=== PATIENT | female | born 1955 | race Caucasian/White ===

== ENCOUNTER 2017-04-30 10:30 | Day surgery (SDC) | payer MEDICARE, MEDICAID ==
[~2017-04-30 10:30] MED LIST: Famotidine 20 MG/2 ML SDV IV ONE; Lidocaine 2% 20 ML MDV INJECT ONE; Metoclopramide 10 MG/2 ML SDV IV ONE; Midazolam 1 MG/ML 2 ML SDV IV ONE; Ondansetron 4 MG/2 ML SDV IV ONE; Propofol 200 MG/20 ML SDV IV ONE
[2017-04-30] MEDS ORDERED: Lactated Ringers 1,000 ML IV SCH (11:15)
[2017-04-30] MEDS ORDERED: Ferric Subsulfate Topical Soln 8 GM (8 ML) Bottle ONE (11:50)
[2017-04-30] MEDS ORDERED: Silver Nitrate Applicator Each ONE (11:51)
[2017-04-30] MEDS ORDERED: Midazolam 1 MG/ML 2 ML SDV ONE (12:25)
[2017-04-30] MEDS ORDERED: fentaNYL 100 MCG/2 ML SDV ONE (12:26)
[2017-04-30] MEDS ORDERED: Metoclopramide 10 MG/2 ML SDV ONE (12:27)
[2017-04-30] MEDS ORDERED: Ketorolac 30 MG/ML SDV ONE (12:27)
[2017-04-30] MEDS ORDERED: Ondansetron 4 MG/2 ML SDV ONE (12:27)
[2017-04-30] MEDS ORDERED: Propofol 200 MG/20 ML SDV ONE (12:27)
[2017-04-30] MEDS ORDERED: Famotidine 20 MG/2 ML SDV ONE (12:27)
[2017-04-30] MEDS ORDERED: Lidocaine 2% 20 ML MDV ONE (12:28)
--- NOTE | 2017-04-30 21:03 | OR ---
DATE: 04/30/2017 PREOPERATIVE DIAGNOSES: Cervical stenosis and unsuccessful previous endometrial biopsy attempt in the office. POSTOPERATIVE DIAGNOSES: Cervical stenosis and unsuccessful previous endometrial biopsy attempt in the office with severe cervical stenosis and very difficult to get access to high stenotic cervix. OPERATION PERFORMED: Attempted D and C, and attempted endometrial biopsy. ANESTHESIA: General anesthesia. ESTIMATED BLOOD LOSS: Negligible. DESCRIPTION OF PROCEDURE: For several days, preoperatively, we have been attempting to soften and hopefully dilate somewhat her severely stenotic cervix. She does have a recent history of some dark vaginal discharge, which is thought to be old dark blood. The patient also has an abnormally thickened endometrium at 11 mm. The patient was taken to the operating room today for attempted D and C, and attempted endometrial biopsy. After the induction of satisfactory general anesthesia and with the patient routinely prepped and draped in the usual fashion, the patient was placed in the dorsal lithotomy position. Now, using the weighted speculum, a very large rectocele and enterocele as visualized before is visible. Now, using the vaginal retractor, we have attempted to gain access to the cervix, which is very high in the vaginal vault. Exposure was very difficult and at this time, we did utilize the longer Morena vaginal retractors because the cervix is extremely high in the vaginal vault. I did re-prep again this area with the Betadine prepping swabs. A single-tooth tenaculum is attached to the anterior lip of the cervix finally after great difficulty and with difficulty getting access to this small stenotic and very high in the vaginal vault tissue. I attempted the Os Finder and this was not helpful, but still resistance in the endocervical canal. The weighted speculum was falling out at times, and a different weighted speculum is inserted and having more Trendelenburg and adjusting the lights repeatedly and also having an extra insurance account assistant present to help with the retractors. The cervix was finally reached, I attempted to sound the endocervical canal, but this was extremely difficult and extremely stenotic. Since the classical and typical dilatation and curettage was not able to be accomplished, I did resort to attempt at endometrial biopsy using a smallest Lezama curette that I have, I have brought this from the clinic with me. Once again, only a very small scant amount of tissue was obtained and I am not sure if this was the satisfactory endometrium or not. Great caution was utilized because of the fact that I do not want to use undo or excessive force on her tissues and we want to avoid any perforation etc. The patient has already had Cytotec for the past 3 to 4 days to hopefully soften and dilate the cervix. It is extremely difficult to proceed on and get appropriate abundant endometrial sampling. All of the instruments were removed at this time. The bimanual exam was again done and reveals the uterus to be in the mid position and thought to be normal sized. Estimated blood loss is negligible. The sponge and instrument count was reported as correct. The patient has tolerated the procedure in a satisfactory fashion, and the scant amount of tissue that might be insufficient was submitted to the pathologist. Because of the highly unusual nature of this case today, I am going to order serum CA-125 testing since this can be a further indicator, although not a perfect indicator of either endometrial carcinoma or ovarian carcinoma. The routine followup instructions are given to the patient at the time of discharge. We will keep in contact with her on the telephone regarding her pathology report, and then further followup measures will be discussed with her. She will contact us if any fever, unusual bleeding, unusual pain, or any other bothersome symptoms whatsoever. She will keep us closely informed on the phone. [facility] /[id number]
[2017-05-01 06:56] VITALS: BP 159/78
== END 2017-04-30 15:55 | disposition home or self-care (01) ==
LOC: DL.SDS 10:30
PROVIDERS: ATTEND Obstetrics & Gynecology
DX: N88.2 Stricture and stenosis of cervix uteri (principal); N85.9 Noninflammatory disorder of uterus, unspecified; I10 Essential (primary) hypertension; E78.5 Hyperlipidemia, unspecified; E11.9 Type 2 diabetes mellitus without complications; Z87.891 Personal history of nicotine dependence; Z79.899 Other long term (current) drug therapy; Z88.6 Allergy status to analgesic agent
CPT/HCPCS: 00940; 36415; 58120; 86304; J2250; J2405; J2704; J2765; J7120; 88305; S0028

== ENCOUNTER 2017-06-16 11:20 | Emergency (ER) | payer MEDICARE, MEDICAID ==
[2017-06-16] MEDS ORDERED: Meclizine 12.5 MG Tab PO ONE ×2 (11:48→12:32)
--- NOTE | 2017-06-16 11:48 | EDM.PDOC ---
ED HPI GENERAL MEDICAL PROBLEM - General Chief Complaint: Headache Stated Complaint: DIZZY/HEADACHE/ARM TINGLES Time Seen by Provider: 06/16/17 11:43 Source of Information: Reports: Patient History Limitations: Reports: No Limitations - History of Present Illness INITIAL COMMENTS - FREE TEXT/NARRATIVE: 62 yo female presents with c/o dizziness. States dizziness has been present for the past 2-3 weeks since starting her atorvastatin. States that she has occasional headaches but not currently having a headache. States that she has nausea as well> denies pain elsewhere. No decrease in appetite. States that she feels like she is spinning. No other complaints Onset Date: 05/26/17 Duration: Constant, Intermittent Location: Reports: Head Quality: Reports: Ache, Pressure Severity: Moderate Improves with: Reports: Rest Worsens with: Reports: Movement Associated Symptoms: Reports: No Other Symptoms - Related Data Allergies Allergy/AdvReac Type Severity Reaction Status Date / Time aspirin Allergy Cannot Uncoded 06/16/17 11:25 Remember Home Meds: Home Meds Acetaminophen 325 mg PO ASDIRECTED PRN 04/22/17 [History] amLODIPine [Norvasc] 5 mg PO DAILY 04/22/17 [History] Cinnamon Bark [Cinnamon] 2 cap PO DAILY 04/29/17 [History] Metoprolol Succinate [Toprol XL] 1 tab PO DAILY 04/30/17 [History] atorvaSTATin [Lipitor] 10 mg PO DAILY 06/16/17 [History] Past Medical History HEENT History: Reports: Impaired Vision, Other (See Below) Other HEENT History: WEARS CORRECTIVE LENS Cardiovascular History: Reports: Blood Clots/VTE/DVT, High Cholesterol, Hypertension, SOB on Exertion, Other (See Below) Other Cardiovascular History: ATHEROSCLEROSIS Respiratory History: Reports: SOB Gastrointestinal History: Reports: Cholelithiasis, Other (See Below) Other Gastrointestinal History: SPENOMEGALY Genitourinary History: Reports: Urinary Incontinence 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: Dysfunctional Uterine Bleeding, , Prolapsed Uterus, Other (See Below) Other OB/BYN History: ENLARGED UTERUS Musculoskeletal History: Reports: Back Pain, Chronic Neurological History: Reports: Brain Injury Psychiatric History: Reports: Depression Endocrine/Metabolic History: Reports: Obesity/BMI 30+ Hematologic History: Reports: None Immunologic History: Reports: None Oncologic (Cancer) History: Reports: Other (See Below) Other Oncologic History: LIP CA Dermatologic History: Reports: None - Infectious Disease History Infectious Disease History: Reports: Chicken Pox, Measles, Mumps - Past Surgical History HEENT Surgical History: Reports: Other (See Below) Other HEENT Surgeries/Procedures: EXCISION OF LIP DUE TO CA Cardiovascular Surgical History: Reports: None Respiratory Surgical History: Reports: None GI Surgical History: Reports: Colonoscopy, EGD Female Surgical History: Reports: Tubal Ligation Endocrine Surgical History: Reports: None Neurological Surgical History: Reports: None Musculoskeletal Surgical History: Reports: None Oncologic Surgical History: Reports: None Dermatological Surgical History: Reports: None Social & Family History - Family History Family Medical History: Noncontributory - Tobacco Use Smoking Status *Q: Former Smoker Used Tobacco, but Quit: Yes Month Tobacco Last Used: ? Second Hand Smoke Exposure: No - Caffeine Use Caffeine Use: Reports: Soda, Tea Other Caffeine Use: SODA POP 1 1 LITER BOTTLE DAILY - Recreational Drug Use Recreational Drug Use: No Drug Use in Last 12 Months: No ED ROS GENERAL - Review of Systems Review Of Systems: See Below GI/Abdominal: Reports: Nausea ED EXAM, DIZZINESS - Physical Exam Exam: See Below Exam Limited By: No Limitations General Appearance: Alert, WD/WN, No Apparent Distress Eye Exam: Bilateral Eye: Normal Inspection, PERRL Ears: Normal External Exam, Normal Canal, Hearing Grossly Normal, Normal TMs Nose: Normal Inspection, No Blood, Clear Rhinorrhea Throat/Mouth: Normal Inspection, Normal Lips, Normal Teeth, Normal Gums, Normal Oropharynx, Normal Voice, No Airway Compromise Head Exam: Atraumatic, Normocephalic Vertigo: reproducible (with laying flat and movement), constant Neck: Normal Inspection, Supple, Non-Tender, Full Range of Motion Respiratory/Chest: No Respiratory Distress, Lungs Clear, Normal Breath Sounds, No Accessory Muscle Use, Chest Non-Tender Cardiovascular: Normal Peripheral Pulses, Regular Rate, Rhythm, No Edema, No Gallop, No JVD, No Murmur, No Rub Neurological: Alert, Normal Mood/Affect, Normal Dorsiflexion, CN II-XII Intact, Normal Plantar Flexion, Normal Gait, No Motor/Sensory Deficits, Oriented x 3 Back Exam: Normal Inspection, Full Range of Motion, NT Course - Vital Signs Last Recorded V/S: Last Vital Signs Temp 98 F 06/16/17 11:28 Pulse 82 06/16/17 13:26 Resp 18 06/16/17 13:26 BP 158/75 H 06/16/17 13:26 Pulse Ox 99 06/16/17 13:26 - Orders/Labs/Meds Orders: Active Orders 24 hr Category Date Time Status EKG Documentation Completion [RC] STAT Care 06/16/17 11:48 Active Labs: Laboratory Tests 06/16/17 06/16/17 Range/Units 12:07 12:07 WBC 7.9 (5.0-10.0) 10^3/uL RBC 5.44 H (4.2-5.4) 10^6/uL Hgb 16.5 H (12.0-16.0) g/dL Hct 49.0 H (37.0-47.0) % MCV 90.1 (80-100) fL MCH 30.3 (27.0-34.0) pg MCHC 33.7 (33.0-35.0) g/dL Plt Count 236 (150-450) 10^3/uL Neut % (Auto) 68.5 (42.2-75.2) % Lymph % (Auto) 21.4 (20.5-50.1) % [place] % (Auto) 8.9 H (2-8) % Eos % (Auto) 0.9 L (1.0-3.0) % Baso % (Auto) 0.3 (0.0-1.0) % Sodium 141 (135-145) mmol/L Potassium 4.1 (3.6-5.0) mmol/L Chloride 100 L (101-111) mmol/L Carbon Dioxide 28.0 (21.0-31.0) mmol/L Anion Gap 17.1 BUN 10 (7-18) mg/dL Creatinine 0.8 (0.6-1.3) mg/dL Est Cr Clr Drug Dosing 61.35 mL/min Estimated GFR (MDRD) > 60 Glucose 136 H (74-105) mg/dL Calcium 10.0 (8.4-10.2) mg/dl Meds: Medications Discontinued Medications Generic Name Dose Route Start Last Admin Trade Name Freq PRN Reason Stop Dose Admin Meclizine HCl 25 mg 06/16/17 11:48 06/16/17 12:02 Antivert PO 06/16/17 11:49 25 mg ONETIME ONE Administration Meclizine HCl 25 mg 06/16/17 12:32 06/16/17 12:42 Antivert PO 06/16/17 12:33 25 mg ONETIME ONE Administration Ondansetron HCl 4 mg 06/16/17 11:51 06/16/17 12:02 Zofran Odt PO 06/16/17 11:52 4 mg ONETIME ONE Administration - Radiology Interpretation Free Text/Narrative:: Spoke with Xin Thacker who states that pt has some underlying decreased density in R frontal, temporal and occipital lobes concerning for lesions. recommends non emergent MRI. - Re-Assessments/Exams Free Text/Narrative Re-Assessment/Exam: 06/16/17 12:32 Some relief with meclizine, will re-dose and re-evaluate 06/16/17 13:35 Pt states that she feels much better. Will dc home with meclizine and instruction for follow up of brain densities Departure - Departure Time of Disposition: 13:36 Disposition: Home, Self-Care 01 Condition: Good Clinical Impression: Vertigo - Discharge Information Instructions: Vertigo, Dizziness Referrals: Yarely Haas [Primary Care Provider] - Forms: ED Department Discharge Additional Instructions: You need to follow up with your primary doctor to be evaluated for possible lesions in the right side of your brain. You may need an MRI to evaluate this. You will need to have your doctor request the copy of the CT scan of your head. Take the medication every eight hours as needed for the dizziness. return for any worsening symptoms. - My Orders Last 24 Hours: My Active Orders 06/16/17 11:48 EKG Documentation Completion [RC] STAT - Assessment/Plan Last 24 Hours: My Active Orders 06/16/17 11:48 EKG Documentation Completion [RC] STAT
[2017-06-16] MEDS ORDERED: Ondansetron 4 MG Tab.DIS PO ONE (11:51)
[2017-06-16 12:35] LABS: CHLORIDE,CL 100 mmol/L (101-111); SODIUM,NA 141 mmol/L (135-145)
[2017-06-16 13:26] VITALS: BP 158/75
--- NOTE | 2017-06-17 15:13 | EKG ---
06/16/2017- NICOLAS WHITMAN - EKG per my reading shows sinus rhythm at the rate of 70. No acute ST changes. [facility] /[id number]
== END 2017-06-16 13:44 | disposition home or self-care (01) ==
LOC: DL.ED 11:20
DX: R42 Dizziness and giddiness (principal); H54.7 Unspecified visual loss; E78.00 Pure hypercholesterolemia, unspecified; I10 Essential (primary) hypertension; E66.9 Obesity, unspecified; Z85.819 Personal history of malignant neoplasm of unspecified site of lip, oral cavity, and pharynx; Z98.51 Tubal ligation status; Z87.891 Personal history of nicotine dependence; Z88.6 Allergy status to analgesic agent; Z79.899 Other long term (current) drug therapy
CPT/HCPCS: 36415; 70450; 80048; 85025; 93005; 93010; 99284; A9270

== ENCOUNTER 2021-03-14 11:13 | Emergency (ER) | payer MEDICARE, MEDICAID ==
--- NOTE | 2021-03-14 11:28 | EDM.PDOC ---
ED HPI GENERAL MEDICAL PROBLEM - General Stated Complaint: FELL DOWNTOWN BUMP ON HEAD NO PHONE Time Seen by Provider: 03/14/21 11:15 Source of Information: Reports: Patient History Limitations: Reports: No Limitations - History of Present Illness INITIAL COMMENTS - FREE TEXT/NARRATIVE: This 66 yo female patient reports to the ED due to tripping on the curb while walking downtown and hitting her head. The patient reports she was "just walking around" downtown when she tripped over the curb and fell. The patient denies any loss of consciousness before, during or after the fall. The patient denies any dizziness before the fall. The patient reports she is on blood thinner and has noticed a large bump to the back of her head. Onset: Today Duration: Minutes: Location: Reports: Head (Posterior scalp hematoma) Quality: Reports: Ache, Dull Severity: Mild Improves with: Reports: None Worsens with: Reports: None Context: Reports: Activity Associated Symptoms: Reports: No Other Symptoms - Related Data Allergies Allergy/AdvReac Type Severity Reaction Status Date / Time aspirin Allergy Stomach Uncoded 06/03/19 19:28 Upset Home Meds: Home Meds Acetaminophen 325 mg PO ASDIRECTED PRN 04/22/17 [History] amLODIPine [Norvasc] 5 mg PO DAILY 04/22/17 [History] Cinnamon Bark [Cinnamon] 2 cap PO DAILY 04/29/17 [History] Metoprolol Succinate [Toprol XL] 1 tab PO DAILY 04/30/17 [History] atorvaSTATin [Lipitor] 10 mg PO DAILY 06/16/17 [History] Clopidogrel Bisulfate [Clopidogrel] 75 mg PO DAILY 06/03/19 [History] metFORMIN [Glucophage] 1,000 mg PO BID 06/03/19 [History] Past Medical History HEENT History: Reports: Impaired Vision, Other (See Below) Other HEENT History: WEARS CORRECTIVE LENS Cardiovascular History: Reports: Blood Clots/VTE/DVT, CAD, High Cholesterol, Hypertension, SOB on Exertion Other Cardiovascular History: ATHEROSCLEROSIS Respiratory History: Reports: SOB Gastrointestinal History: Reports: Cholelithiasis, Other (See Below) Other Gastrointestinal History: SPENOMEGALY Genitourinary History: Reports: Urinary Incontinence 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: Dysfunctional Uterine Bleeding, , Prolapsed Uterus, Other (See Below) Other MEAT AND POULTRY INSPECTOR History: ENLARGED UTERUS Musculoskeletal History: Reports: Back Pain, Chronic Neurological History: Reports: Brain Injury Psychiatric History: Reports: Depression Endocrine/Metabolic History: Reports: Obesity/BMI 30+ Hematologic History: Reports: None Immunologic History: Reports: None Oncologic (Cancer) History: Reports: Other (See Below) Other Oncologic History: LIP CA Dermatologic History: Reports: None - Infectious Disease History Infectious Disease History: Reports: Chicken Pox, Measles, Mumps - Past Surgical History HEENT Surgical History: Reports: Other (See Below) Other HEENT Surgeries/Procedures: EXCISION OF LIP DUE TO CA Cardiovascular Surgical History: Reports: None Respiratory Surgical History: Reports: None GI Surgical History: Reports: Colonoscopy, EGD Female Surgical History: Reports: Tubal Ligation Endocrine Surgical History: Reports: None Neurological Surgical History: Reports: None Musculoskeletal Surgical History: Reports: None Oncologic Surgical History: Reports: None Dermatological Surgical History: Reports: None Social & Family History - Family History Family Medical History: No Pertinent Family History - Caffeine Use Caffeine Use: Reports: Coffee, Soda Other Caffeine Use: SODA POP 1 1 LITER BOTTLE DAILY ED ROS GENERAL - Review of Systems Review Of Systems: Comprehensive ROS is negative, except as noted in HPI. ED EXAM, HEAD INJURY - Physical Exam Exam: See Below Exam Limited By: No Limitations General Appearance: Alert, WD/WN, Mild Distress Head: Scalp Hematoma (Posterior scalp) Nexus Criteria: No: Posterior, Midline Cervical Tenderness, Evidence of Intoxication, Altered Level of Consciousness, Focal Neurological Deficit, Painful Distraction Injuries Eyes: Bilateral Eye: EOMI, Normal Inspection, PERRL Ears: Normal External Exam, Normal Canal, Hearing Grossly Normal, Normal TMs Nose: Normal Inspection, Normal Mucousa, No Blood Throat/Mouth: Normal Inspection, Normal Lips, Normal Teeth, Normal Gums, Normal Oropharynx, Normal Voice, No Airway Compromise Neck: Non-Tender, Full Range of Motion, Normal Alignment, Normal Inspection Respiratory: No Respiratory Distress, Lungs Clear, Normal Breath Sounds, No Accessory Muscle Use, Chest Non-Tender Cardiovascular: Normal Peripheral Pulses, Regular Rate, Rhythm, No Edema, No Gallop, No JVD, No Murmur, No Rub GI/Abdominal Exam: Normal Bowel Sounds, Soft, Non-Tender, No Organomegaly, No Distention, No Abnormal Bruit, No Mass (Female) Exam: Deferred Rectal (Female) Exam: Deferred Back Exam: Full Range of Motion, Normal Inspection, NT Extremities: Normal Inspection, Normal Range of Motion, Non-Tender, No Pedal Edema, Normal Capillary Refill Neurologic: color stripper II-XII nml As Tested, No Motor/Sensory Deficits, Alert, Normal Mood/Affect, Oriented x 3 Skin: Other (The patient has a large hematoma to her posterior head due to the fall. There is currently no bleeding or abrasion to the area.) - [place] Coma Score Best Eye Response ([place]): (4) Open Spontaneously Best Verbal Response ([place]): (5) Oriented Best Motor Response ([place]): (6) Obeys Commands [place] Total: 16 Course - Vital Signs Last Recorded V/S: Last Vital Signs Temp 97.6 F 03/14/21 11:19 Pulse 99 03/14/21 11:19 Resp 18 03/14/21 11:19 BP 152/128 H 03/14/21 11:19 Pulse Ox 99 03/14/21 11:19 Departure - Departure Time of Disposition: 12:21 Disposition: Home, Self-Care 01 Condition: Fair Clinical Impression: Scalp hematoma Qualifiers: Encounter type: initial encounter Qualified Code(s): S00.03XA - Contusion of scalp, initial encounter - Discharge Information *PRESCRIPTION DRUG MONITORING PROGRAM REVIEWED*: Not Applicable *COPY OF PRESCRIPTION DRUG MONITORING REPORT IN PATIENT LIZBETH: Not Applicable Instructions: Facial or Scalp Contusion, [id number] Forms: ED Department Discharge Care Plan Goals: The patient was advised of the examination and CT results during the visit. The patient was encouraged to apply ice to the area. If the patient has any additional symptoms or concerns, the patient should either return to the emergency department or visit her primary care facility. Sepsis Event Note (ED) - Focused Exam Vital Signs: Vital Signs Temp Pulse Resp BP Pulse Ox 03/14/21 11:19 97.6 F 99 18 152/128 H 99
[2021-03-14 11:43] VITALS: BP 152/128; PULSE 99
--- NOTE | 2021-03-14 11:49 | CT ---
PROCEDURE INFORMATION: Exam: CT Head Without Contrast Exam date and time: 03/14/2021 11:40 AM Age: 66 years old Clinical indication: Injury or trauma; Fall; Abrasion; Scalp; Injury date: 03/14/2021; Additional info: Ground level fall (contusion posterior scalp) TECHNIQUE: Imaging protocol: Computed tomography of the head without contrast. Radiation optimization: All CT scans at this facility use at least one of these dose optimization techniques: automated exposure control; mA and/or kV adjustment per patient size (includes targeted exams where dose is matched to clinical indication); or iterative reconstruction. COMPARISON: CT Head wo Cont 06/16/2017 11:50 AM FINDINGS: Brain: Pre-existing low-attenuation white matter foci in the right occipital lobe, both frontal lobes, and right temporal lobes, not significantly changed in the interval. No intracranial hemorrhage or acute brain injury. Cerebral ventricles: No intraventricular hemorrhage or hydrocephalus. Paranasal sinuses: The visualized paranasal sinuses are aerated. Mastoid air cells: The mastoid air cells are aerated. Bones/joints: No calvarial fracture. There is hyperostosis frontalis interna. Soft tissues: There is a midline and right paramidline posterior parietal/occipital scalp hematoma. IMPRESSION: No intracranial injury or calvarial fracture.
== END 2021-03-14 12:29 | disposition home or self-care (01) ==
LOC: DL.ED 11:13
DX: S00.03XA Contusion of scalp, initial encounter (principal); I25.10 Atherosclerotic heart disease of native coronary artery without angina pectoris; E78.00 Pure hypercholesterolemia, unspecified; I10 Essential (primary) hypertension; E66.9 Obesity, unspecified; Z79.02 Long term (current) use of antithrombotics/antiplatelets; Z79.899 Other long term (current) drug therapy; Z88.8 Allergy status to other drugs, medicaments and biological substances; Z68.30 Body mass index [BMI] 30.0-30.9, adult; W18.09XA Striking against other object with subsequent fall, initial encounter; W10.1XXA Fall (on)(from) sidewalk curb, initial encounter; Y92.480 Sidewalk as the place of occurrence of the external cause
CPT/HCPCS: 70450; 99283-25

== ENCOUNTER 2021-06-14 18:48 | Emergency (ER) | payer MEDICARE, MEDICAID ==
[2021-06-14] MEDS ORDERED: Sulfamethoxazole/Trimethoprim 800-160 MG Tab PO ONE (18:49)
[2021-06-14 19:11] VITALS: BP 149/78; PULSE 102
--- NOTE | 2021-06-14 19:26 | EDM.PDOC ---
ED HPI GENERAL MEDICAL PROBLEM - General Chief Complaint: Lower Extremity Injury/Pain Stated Complaint: FELL LEFT SIDE HURTS. Time Seen by Provider: 06/14/21 19:12 Source of Information: Reports: Patient, RN Notes Reviewed - History of Present Illness INITIAL COMMENTS - FREE TEXT/NARRATIVE: Pt is here for left lower extremity swelling and pain. It started about 2 days ago after she fell and landed on her left knee. She notes her knee does not hurt, but yesterday, her calf started to swell, become red and painful. She is a diabetic and is worried about possible infection. Pt does take plavix after a recent stroke. No numbness or tingling in her foot or toes. No swelling in her right lower extremity. No history of previous swelling in her legs. Duration: Day(s): (2) Location: Reports: Lower Extremity, Left - Related Data Allergies Allergy/AdvReac Type Severity Reaction Status Date / Time aspirin Allergy Stomach Uncoded 06/03/19 19:28 Upset Home Meds: Home Meds Acetaminophen 325 mg PO ASDIRECTED PRN 04/22/17 [History] amLODIPine [Norvasc] 5 mg PO DAILY 04/22/17 [History] Cinnamon Bark [Cinnamon] 2 cap PO DAILY 04/29/17 [History] atorvaSTATin [Lipitor] 10 mg PO DAILY 06/16/17 [History] Clopidogrel Bisulfate [Clopidogrel] 75 mg PO DAILY 06/03/19 [History] metFORMIN [Glucophage] 1,000 mg PO BID 06/03/19 [History] Past Medical History HEENT History: Reports: Impaired Vision, Other (See Below) Other HEENT History: WEARS CORRECTIVE LENS Cardiovascular History: Reports: Blood Clots/VTE/DVT, CAD, High Cholesterol, Hypertension, SOB on Exertion Other Cardiovascular History: ATHEROSCLEROSIS Respiratory History: Reports: SOB Gastrointestinal History: Reports: Cholelithiasis, Other (See Below) Other Gastrointestinal History: SPLENOMEGALY Genitourinary History: Reports: Urinary Incontinence CLINIC OFFICE MANAGER History: Reports: Dysfunctional Uterine Bleeding, , Prolapsed Uterus, Other (See Below) Other CLINIC OFFICE MANAGER History: ENLARGED UTERUS Musculoskeletal History: Reports: Back Pain, Chronic Neurological History: Reports: Brain Injury Psychiatric History: Reports: Depression Endocrine/Metabolic History: Reports: Diabetes, Type II, Obesity/BMI 30+ Hematologic History: Reports: None Immunologic History: Reports: None Oncologic (Cancer) History: Reports: Other (See Below) Other Oncologic History: LIP CANCER Dermatologic History: Reports: None - Infectious Disease History Infectious Disease History: Reports: Chicken Pox, Measles, Mumps - Past Surgical History HEENT Surgical History: Reports: Other (See Below) Other HEENT Surgeries/Procedures: EXCISION OF LIP DUE TO CA Cardiovascular Surgical History: Reports: None Respiratory Surgical History: Reports: None GI Surgical History: Reports: Colonoscopy, EGD Female Surgical History: Reports: Tubal Ligation Endocrine Surgical History: Reports: None Neurological Surgical History: Reports: None Musculoskeletal Surgical History: Reports: None Oncologic Surgical History: Reports: None Dermatological Surgical History: Reports: None Social & Family History - Family History Family Medical History: No Pertinent Family History - Tobacco Use Tobacco Use Status *Q: Never Tobacco User Second Hand Smoke Exposure: No - Caffeine Use Caffeine Use: Reports: Soda Other Caffeine Use: SODA POP 1 1 LITER BOTTLE DAILY Review of Systems - Review of Systems Review Of Systems: Comprehensive ROS is negative, except as noted in HPI. ED EXAM, GENERAL - Physical Exam Exam: See Below Exam Limited By: No Limitations General Appearance: Alert, WD/WN, No Apparent Distress Eye Exam: Bilateral Eye: Normal Inspection Ears: Normal External Exam Head: Atraumatic, Normocephalic Neck: Supple, Non-Tender Respiratory/Chest: No Respiratory Distress, Lungs Clear, Normal Breath Sounds, No Accessory Muscle Use Cardiovascular: Normal Peripheral Pulses, Regular Rate, Rhythm, No Murmur GI/Abdominal: Soft, Non-Tender (Female) Exam: Deferred Rectal (Female) Exam: Deferred Back Exam: Normal Inspection, Full Range of Motion, NT Extremities: Normal Inspection, Normal Capillary Refill, Pedal Edema (left lower extremity), Redness (left lower extremity) Neurological: Alert, Oriented, Normal Cognition, No Motor/Sensory Deficits Psychiatric: Normal Affect, Normal Mood Skin Exam: Warm, Dry, Intact, No Rash Course - Vital Signs Last Recorded V/S: Last Vital Signs Temp 99 F 06/14/21 19:08 Pulse 102 H 06/14/21 19:08 Resp 18 06/14/21 19:08 BP 149/78 H 06/14/21 19:08 Pulse Ox 97 06/14/21 19:08 - Orders/Labs/Meds Orders: Active Orders 24 hr Category Date Time Status Venous Doppler Lwr Ext Lt [US] Urgent Exams 06/14/21 19:20 Ordered - Re-Assessments/Exams Free Text/Narrative Re-Assessment/Exam: US of the left lower extremity negative for DVT. Will start the pt on antibiotics. She notes she does not have the money to fill a prescription at this time, but could fill them on thursday. 06/14/21 20:22 Departure - Departure Time of Disposition: 20:28 Disposition: Home, Self-Care 01 Condition: Good Clinical Impression: Cellulitis Qualifiers: Site of cellulitis: extremity Site of cellulitis of extremity: lower extremity Laterality: left Qualified Code(s): L03.116 - Cellulitis of left lower limb - Discharge Information *PRESCRIPTION DRUG MONITORING PROGRAM REVIEWED*: Not Applicable *COPY OF PRESCRIPTION DRUG MONITORING REPORT IN PATIENT LIZBETH: Not Applicable Instructions: Cellulitis, Adult, [id number] Forms: ED Department Discharge Additional Instructions: Bactrim twice daily for 10 days Over the counter medications as needed for pain relief Follow up with primary care provider in 5-7 days Sepsis Event Note (ED) - Focused Exam Vital Signs: Vital Signs Temp Pulse Resp BP Pulse Ox 06/14/21 19:08 99 F 102 H 18 149/78 H 97 - My Orders Last 24 Hours: My Active Orders 06/14/21 19:20 Venous Doppler Lwr Ext Lt [US] Urgent - Assessment/Plan Last 24 Hours: My Active Orders 06/14/21 19:20 Venous Doppler Lwr Ext Lt [US] Urgent
--- NOTE | 2021-06-14 20:28 | US ---
PROCEDURE INFORMATION: Exam: US Duplex Left Lower Extremity Veins, Limited Exam date and time: 06/14/2021 7:44 PM Age: 66 years old Clinical indication: Pain; Leg, lower; Left; Additional info: Left lower extremity swelling TECHNIQUE: Imaging protocol: Real-time Duplex ultrasound of the Left Lower Extremity with 2-D tobar scale, color Doppler flow and spectral waveform analysis with image documentation. Limited exam focused on the left lower extremity veins. COMPARISON: No relevant prior studies available. FINDINGS: Left deep veins: Unremarkable. The common femoral, femoral, proximal profunda femoral, and popliteal veins are patent without thrombus. Normal Doppler waveforms. Normal compressibility and/or augmentation response. Left superficial veins: Unremarkable. Saphenofemoral junction is patent without thrombus. Soft tissues: Subcutaneous edema. IMPRESSION: No evidence of left lower extremity deep vein thrombosis.
[2021-06-14] MEDS ORDERED: Sulfamethoxazole/Trimethoprim 800-160 MG Tab ONE (20:35)
== END 2021-06-14 20:46 | disposition home or self-care (01) ==
LOC: DL.ED 18:48
DX: L03.116 Cellulitis of left lower limb (principal); I25.10 Atherosclerotic heart disease of native coronary artery without angina pectoris; E78.00 Pure hypercholesterolemia, unspecified; I10 Essential (primary) hypertension; E11.9 Type 2 diabetes mellitus without complications; E66.9 Obesity, unspecified; Z68.30 Body mass index [BMI] 30.0-30.9, adult; Z86.718 Personal history of other venous thrombosis and embolism; Z88.8 Allergy status to other drugs, medicaments and biological substances; Z79.02 Long term (current) use of antithrombotics/antiplatelets; Z79.84 Long term (current) use of oral hypoglycemic drugs; Z79.899 Other long term (current) drug therapy
CPT/HCPCS: 93971; 99283-25; A9270-GY